=== PATIENT | female | born 1965 | race Caucasian/White ===

== ENCOUNTER 2016-07-28 07:32 | Inpatient (IN) | payer BC ==
--- NOTE | 2016-07-02 09:17 | HISTORY & PHYSICAL EXAMINATION ---
DATE OF ADMISSION: 07/28/2016 PROCEDURE: 1. Right knee arthroscopy, partial medial meniscectomy. 2. Left total knee replacement. HISTORY OF PRESENT ILLNESS: Nathanael is a pleasant 50-year-old female who presents for preoperative evaluation prior to above-mentioned procedure. She has been having pain in both of her knees for several years now, which has gradually worsened, her left knee reveals degenerative changes that have failed conservative measures including oral anti-inflammatories, cortisone injection, as well as viscosupplementation. She has tried wearing a brace as well as completed physical therapy with no relief. With regards to her right knee, she had an MRI obtained which revealed a medial meniscus tear. After discussing further care would like to proceed with a right knee arthroscopy and partial medial meniscectomy, also with a left knee replacement. PAST MEDICAL HISTORY: She denies a history of hypertension, high cholesterol, bleeding or clotting disorders. ALLERGIES: IBUPROFEN CAUSES STOMACH PAIN. ASPIRIN CAUSES STOMACH IRRITATION. CURRENT MEDICATIONS: 1. Tramadol 50 mg as needed for pain. 2. Multivitamin. 3. Cyclobenzaprine. PAST SURGICAL HISTORY: 1. Hysterectomy. 2. Lower back surgery. FAMILY HISTORY: Noncontributory. SOCIAL HISTORY: The patient is . Consumes 1-2 alcoholic beverages per week. Denies a history of smoking or tobacco use. REVIEW OF SYSTEMS: Otherwise negative. Please see HPI for pertinent positives. PHYSICAL EXAMINATION: GENERAL: Lokesh 50-year-old female in no acute distress. Alert and oriented x3. HEAD, EYES, EARS, NOSE, AND THROAT: Normocephalic, atraumatic. CARDIAC: Regular rate and rhythm. No murmurs or gallops appreciated. Resting pulse 80 beats per minute. LUNGS: Clear to auscultation without rales or wheeze bilaterally. ABDOMEN: Soft, nontender, bowel sounds present. EXTREMITIES: Right lower extremity is neurovascularly intact. Calf is soft and nontender. DP pulse +2. Range of motion is 0/1/120. She has positive modified Goyo's. With regards to her left knee there is no erythema or warmth. Has mild effusion, good quad tone, straight leg raise without lag. Overall has varus alignment. Her knee is ligamentously stable. She has positive crepitation with motion, range of motion is 0/5/115. IMAGING: Reviewed of the left knee shows findings consistent with degenerative joint disease including joint space narrowing, subchondral sclerosis, osteophyte formation noted. IMPRESSION: 1. Left knee degenerative joint disease. 2. Right knee medial meniscus tear. PLAN: Further care discussed with patient. At this point in time, has failed conservative measures and will proceed with above-mentioned procedure. We will do the right knee arthroscopy first followed by a left knee replacement. Will follow up 2 weeks postop for staple removal, sooner if she is having any problems. Otherwise, has no other questions or concerns.
[2016-07-02 13:15] VITALS: BMI 29.0
--- NOTE | 2016-07-02 13:40 | PAT Medication Instructions ---
Service Date Jul 02, 2016. Current Home Medication List Ascorbic Acid (Vitamin C), 2 TAB PO QPM Cholecalciferol (Vitamin D3), 3 TAB PO QPM Coconut Oil (Coconut Oil Organic), 4 TAB PO QPM Cyclobenzaprine Hcl (Flexeril), 5 MG PO HS Misc Natural Products (Osteo Bi-Flex Advanced Do), 2 TAB PO QPM Multivitamin (Multivitamin), 1 TAB PO HS Nutritional Supplements (Humble Oil), 4 CAP PO QPM Tramadol (Ultram), 50 MG PO Q4H PRN for Pain Vitamin E (Vitamin E), 2 TAB PO QPM Medication Instructions For Your Scheduled Surgery - Hold the following medications 2 weeks prior to surgery: Misc Natural Products (Osteo Bi-Flex Advanced Do), 2 TAB PO QPM Coconut Oil (Coconut Oil Organic), 4 TAB PO QPM Vitamin E (Vitamin E), 2 TAB PO QPM Nutritional Supplements (Humble Oil), 4 CAP PO QPM - Take the following medications the morning of surgery with a sip of water OTHERWISE NOTHING TO EAT OR DRINK AFTER MIDNIGHT: Tramadol (Ultram), 50 MG PO Q4H PRN for Pain (may take up to 4 hours prior to surgery - Take the following medications as scheduled the night before surgery: Tramadol (Ultram), 50 MG PO Q4H PRN for Pain Cyclobenzaprine Hcl (Flexeril), 5 MG PO HS Multivitamin (Multivitamin), 1 TAB PO HS Ascorbic Acid (Vitamin C), 2 TAB PO QPM Cholecalciferol (Vitamin D3), 3 TAB PO QPM If you have any questions please call us at [phone] (Crystal Trinh PA-C) or [phone] or [phone]
[2016-07-02 14:37] LABS: BASO % 0.6 %; BASO ABS # 0.04 K/uL (0-0.2); COMPLETE YES; HEMATOCRIT 38.6 % (37-47); IG% 0.2 %; LYMPH % 26.5 %; LYMPH ABS # 1.69 K/uL (1.2-3.4); MEAN CELL VOLUME 88.7 fL (80-100); MEAN CORPUSCULAR HEMOGLOBIN 30.3 pg (25-34); MEAN CORPUSCULAR HGB CONC 34.2 g/dl (32-36); MEAN PLATELET VOLUME 10.1 fL (7.4-10.4); NEUT % 56.7 %; PLATELET COUNT 341 K/uL (130-400); RED BLOOD COUNT 4.35 M/uL (4.2-5.4); WHITE BLOOD COUNT 6.38 K/uL (4.8-10.8)
--- NOTE | 2016-07-02 14:44 | DIAGNOSTIC IMAGING REPORT ---
CHEST PREADMISSION(PA/LAT) CLINICAL HISTORY: Preoperative evaluation. COMPARISON STUDY: No previous studies for comparison. FINDINGS: Lung volumes are normal. Lungs are clear. There is no pneumothorax or pleural effusion. Pulmonary vascularity is normal. Cardiac size is normal. Mediastinal contours are unremarkable. IMPRESSION: No acute cardiopulmonary findings. Electronically signed by: Bebeto Salazar M.D. 07/02/2016 2:42 PM Dictated Date/Time: 07/02/2016 2:42 PM
[2016-07-02 14:52] LABS: URINE APPEARANCE CLEAR (CLEAR); URINE BILIRUBIN NEG (NEG); URINE COLOR DK YELLOW; URINE NITRITE NEG (NEG); URINE SPECIFIC GRAVITY 1.035 (1.000-1.030); UROBILINOGEN NEG (NEG)
[2016-07-02 14:55] LABS: PARTIAL THROMBOPLASTIN RATIO 1.1; PROTHROMBIN TIME (PATIENT) 10.7 SECONDS (9.0-12.0)
[2016-07-02 15:01] LABS: MANUAL MICROSCOPIC REQUIRED? NO; REVIEW REQ? NO
[2016-07-02 15:01] LABS: CALCIUM 8.8 mg/dl (8.5-10.1); CREATININE 0.77 mg/dl (0.60-1.20); POTASSIUM 4.6 mmol/L (3.5-5.1)
[2016-07-03 06:22] LABS: ESTIMATED AVERAGE GLUCOSE 100 mg/dl; HA1C FLAG Normal (Normal)
[~2016-07-28] VITALS: Ht 167.6 cm; Wt 84.0 kg
[2016-07-28] VITALS (8 sets, daily range): BP systolic 122–161; BP diastolic 72–99; PULSE 58–102; TEMP 36.4–37; O2SAT 95–100; Ht 167.6 cm; Wt 84.0 kg
--- NOTE | 2016-07-28 07:12 | History & Physical Bridge Note ---
H&P Re-Evaluation Bridge Note: I have examined the patient, reviewed the History & Physical and in the interval since the performance of the History & Physical I have noted the following changes of clinical significance: No changes noted
[~2016-07-28 07:32] MED LIST: ACETAMINOPHEN 500 MG TAB PO SCH; ASCA500 PO; CEFAZOLIN 2000 MG/60 ML D5W 60 ML IV SCH; CHOL1CHW10 PO; COCO1CAP PO; CYCL5TAB PO; CeleBREX 200 MG CAP PO SCH; DEXAMETHASONE 4 MG TAB PO SCH; FAMOTIDINE 20 MG TAB PO SCH; GABAPENTIN 300 MG CAP PO SCH; LACTATED RINGER'S 1000ML 1,000 ML IV SCH; LACTATED RINGER'S 1000ML IV SCH; LACTATED RINGER'S 500 ML IV SCH; METOCLOPRAMIDE HCL 10 MG TAB PO SCH; MISCTAB78 PO; MULT-506 PO; NUTR1000 PO; ORTHO JOINT ANESTHETIC ONE; ROPIVACAINE 5MG/ML 30 ML 150 MG, BUPIVACAINE/EPINEPHR 0.5% MPF 30 ML, KETOROLAC TROMETH... INFIL SCH; TRAM-10 PO; VITA10004 PO
[2016-07-28] MEDS ORDERED: BACITRACIN 50000 UNIT VIAL ONE ×2 (07:33→07:34)
[2016-07-28] MEDS ORDERED: MIDAZOLAM HCL 1 MG/ML 2ML VIAL ONE ×2 (07:41→08:55)
[2016-07-28] MEDS ORDERED: ONDANSETRON INJ 2 MG/ML 2 ML VIAL ONE (07:41)
[2016-07-28] MEDS ORDERED: LIDOCAINE HCL 2% 2 ML VIAL (20MG/ML) ONE (07:41)
[2016-07-28] MEDS ORDERED: PROPOFOL IV EMULSION 10 MG/ML 20 ML VIAL IV ONE ×2 (07:41→09:45)
[2016-07-28] MEDS ORDERED: BUPIVACAINE 0.25% 30 ML VIAL ONE (07:56)
[2016-07-28] MEDS ORDERED: BUPIVACAINE 0.5 % 5 MG/1 ML PF 10ML VIAL ONE (07:57)
[2016-07-28] MEDS: TRANEXAMIC ACID INJ 1,000 MG in SODIUM CHLORIDE 0.9% 100ML 100 ML IV SCH ×2 (08:21→13:06)
[2016-07-28] MEDS ORDERED: LACTATED RINGER'S 1000ML 1,000 ML IV PRN (08:38)
[2016-07-28] MEDS ORDERED: ONDANSETRON INJ 2 MG/ML 2 ML VIAL IV PRN ×2 (08:45→10:45)
[2016-07-28] MEDS ORDERED: FENTANYL CITRATE INJ 50 MCG/1 ML 2 ML VIAL IV PRN (08:45)
[2016-07-28] MEDS ORDERED: BUPIVACAINE/EPINEPHRINE 0.5% MPF 1:200,000 30 ML VIAL ONE (08:55)
[2016-07-28] MEDS ORDERED: FENTANYL CITRATE INJ 50 MCG/1 ML 2 ML VIAL ONE (09:16)
--- NOTE | 2016-07-28 10:10 | [facility] Post Operative Brief Note ---
Immediate Operative Summary Operative Date Jul 28, 2016. Pre-Operative Diagnosis Left knee degenerative joint disease, right knee medial meniscus tear Post-Operative Diagnosis Left knee degenerative joint disease, right knee medial meniscus tear Procedure(s) Performed Left total knee arthoplasty, Right knee partial medial meniscectomy, partial lateral meniscectomy, Right knee arthroscopy Surgeon Dr. Shell Rn Hedis Surgeon(s) Sam Monet PA-C Estimated Blood Loss 10 cc Findings Rt knee tmm tlm left knee djd Specimens A: Left knee bone and tissue Complication(s) None Disposition Recovery Room / PACU
[2016-07-28] MEDS ORDERED: POVIDONE-IODINE OP SOLN 30 ML BTL TOP ONE (10:13)
[2016-07-28] MEDS ORDERED: DiphenhydrAMINE HCL 50 MG/ML VIAL IV PRN (10:45)
[2016-07-28] MEDS ORDERED: ALUMINUM/MAGNESIUM/SIMETH (MAALOX MAX) 30 ML UDC PO PRN (10:45)
[2016-07-28] MEDS ORDERED: BISACODYL 10 MG SUPP PR PRN (10:45)
[2016-07-28] MEDS ORDERED: MoRPHine SULFATE 2 MG/ML CARP IV PRN (10:45)
[2016-07-28] MEDS ORDERED: MAGNESIUM HYDROXIDE SUSP 30 ML UDC PO PRN (10:45)
--- NOTE | 2016-07-28 11:28 | DIAGNOSTIC IMAGING REPORT ---
LEFT KNEE 2 VIEWS History: Left total knee arthroplasty. Degenerative arthritis. Postop. FINDINGS: The patient is status post a left total knee arthroplasty. The hardware is intact. No fracture or dislocation. Skin paola and surgical drains are in place. IMPRESSION: Left total knee arthroplasty. No evidence for hardware complication. Electronically signed by: Jaquan Willis M.D. 07/28/2016 11:27 AM Dictated Date/Time: 07/28/2016 11:26 AM
--- NOTE | 2016-07-28 11:43 | Anesthesiology Progress Note ---
Anesthesia Post Op Note Date & Time Jul 28, 2016 at 11:42 Vital Signs Pain Intensity: 0 Vital Signs Past 12 Hours Date Time Temp Pulse Resp B/P Pulse Ox O2 Delivery O2 Flow Rate FiO2 07/28/16 11:35 36.4 58 20 138/85 100 Nasal Cannula 2.0 07/28/16 11:14 58 15 97 07/28/16 11:14 58 15 07/28/16 11:13 109/64 07/28/16 11:09 57 20 07/28/16 11:09 58 20 100 07/28/16 11:08 122/59 07/28/16 11:06 36.6 07/28/16 11:04 55 20 100 07/28/16 11:04 56 20 07/28/16 11:03 118/79 07/28/16 10:59 74 19 100 07/28/16 10:59 72 19 07/28/16 10:58 127/83 07/28/16 10:57 88 16 100 07/28/16 10:57 88 16 07/28/16 10:53 123/75 07/28/16 10:52 65 23 07/28/16 10:52 63 23 99 07/28/16 10:51 66 20 99 07/28/16 10:51 67 20 07/28/16 10:48 121/76 07/28/16 10:46 61 16 98 07/28/16 10:46 61 16 07/28/16 10:44 128/93 07/28/16 10:41 89 17 100 07/28/16 10:41 36.1 78 16 127/71 100 Nasal Cannula 2 07/28/16 10:41 91 17 07/28/16 07:52 36.6 69 18 161/99 100 Room Air Notes Mental Status: alert / awake / arousable, participated in evaluation Pt Amnestic to Procedure: No Nausea / Vomiting: adequately controlled Pain: adequately controlled Airway Patency, RR, SpO2: stable & adequate BP & HR: stable & adequate Hydration State: stable & adequate Neuraxial Anesthesia: was administered, sensory block is resolving Anesthetic Complications: no major complications apparent Pt did well. Recall as explained and expected.
--- NOTE | 2016-07-28 11:58 | OPERATIVE REPORT ---
DATE OF OPERATION: 07/28/2016 PREOPERATIVE DIAGNOSES: Right knee torn medial meniscus, torn lateral meniscus, grade 3 and 4 degenerative joint disease medial compartment, left knee severe degenerative joint disease. POSTOPERATIVE DIAGNOSES: Right knee torn medial meniscus, torn lateral meniscus, grade 4 medial compartment global degenerative joint disease, left knee severe end-stage degenerative joint disease tricompartmental. PROCEDURES: Right knee arthroscopy, arthroscopic partial medial meniscectomy, partial lateral meniscectomy, chondroplasty of medial tibial plateau and medial femoral condyle, left knee Journey II patient matched block custom fit total knee arthroplasty using size 6 femur, 5 tibia, 10 poly, 35 oval patella. SURGEON: Dr. Shell. EQUITY DIRECTOR: Sam Monet, who was necessary for prepping, draping, retraction, wound closure of defect, subQ and skin and was necessary for the case. HISTORY OF PRESENT ILLNESS: The patient presents as a very pleasant 50-year-old female, being seen and evaluated with complaints of ongoing pain attributable to her bilateral knees. She presents with the above complaints after being unsuccessful with conservative management. INDICATIONS: The patient, age 50, presents being seen and evaluated after failing attempts at conservative management including physical therapy, viscosupplementation, corticosteroid injections, relative rest and presents after failing conservative management for total knee arthroplasty. PROCEDURE FOR RIGHT KNEE: After proper prepping and draping of the right lower extremity, arthroscopic examination revealed there to be evidence of a tear of the medial meniscus, tear of the lateral meniscus and medial and lateral parapatellar portals were created. Arthroscopy revealed there to be evidence of a complex tear of the posterior horn of the medial meniscus, complex tear of the posterior horn of the lateral meniscus. Subsequently, partial posterior horn medial and lateral meniscectomies were performed. Removal of a 1 x 1 cm loose body was also performed. A chondroplasty for global grade 3 and 4 changes of the medial compartment and patellofemoral compartments was performed. All particulate matter and debris was removed. Skin portals were closed with 4-0 nylon. Sterile compression dressing was placed to the right knee. PROCEDURE FOR LEFT KNEE: The patient was properly prepped and draped in supine position for total knee arthroplasty after identifying the appropriate surgical site. An anterior midline incision was made through the subcutaneous tissues down to the region of the extensor mechanism. A medial parapatellar incision was subsequently made. Meticulous hemostasis was obtained and performed at all times. The patella having been subluxed lateralward, medial and lateral meniscal remnants were excised. The patellar cut was then initially made and was sized to the appropriate size. After subluxing the tibia forward the appropriate meniscal fragments having been removed the distal femur was then cut first utilizing a Goodrich and Nephew block. The distal femoral cuts and chamfer cuts were all made under direct visualization and the proximal tibial osteotomy cut was also made utilizing Goodrich and Nephew blocks and checked with an extramedullary guide. The appropriate trial components on the femur and tibia were placed. Appropriate trial spacers were used to check flexion and extension gaps. With flexion and extension gaps being equal, the components were then subsequently after thorough irrigation and debridement lavage components were then subsequently cemented in the following order: femur, tibia and patella. Exparel was used for intraoperative anesthesia, the medial parapatellar incision was closed utilizing #1 Vicryl, subQ was closed with 2-0 Vicryl, skin was closed with skin clips. A sterile compression dressing was placed. The patient was taken to recovery room in stable condition. Due to the complex nature of the procedure, the entire surgery was performed with the operational assistance of Sam Monet PA-C. The patient care assistant, under direct supervision, was involved in the actual performance of all aspects of the surgical procedure including hemostasis, tissue retraction and incision, instrument management, patient positioning, and wound closure. ESTIMATED BLOOD LOSS: Total of 10 mL. TOURNIQUET TIME: Right knee 15 minutes and left knee 45 minutes. No complications. I attest to the content of the Intraoperative Record and any orders documented therein. Any exceptions are noted below. ARMANDO
[2016-07-28] MEDS ORDERED: MoRPHine SULFATE 10 MG/ML CARP/VIAL IV PRN (12:15)
[2016-07-28] MEDS: D5W AND 1/2NSS + 20MEQ KCL 1,000 ML IV SCH ×2 (13:07→22:32)
[2016-07-28] MEDS: FERROUS GLUCONATE 324 MG TAB PO SCH ×2 (13:08→17:52)
[2016-07-28] MEDS: KETOROLAC TROMETHAMINE 30 MG/ML VIAL IV. SCH ×2 (14:14→20:40)
[2016-07-28] MEDS: OXYCODONE HCL IR 5 MG TAB (IMMEDIATE RELEASE) PO PRN ×2 (15:07→17:00)
[2016-07-28] MEDS: ACETAMINOPHEN 500 MG TAB PO SCH (15:36)
[2016-07-28] MEDS: CEFAZOLIN IV 2,000 MG in DEXTROSE 5% 50ML 50 ML IV SCH (15:36)
[2016-07-28] MEDS: OXYCODONE HCL 10 MG TABCR (OXYCONTIN) PO SCH (20:40)
[2016-07-28] MEDS: DOCUSATE SODIUM 100 MG CAP PO SCH (20:40)
[2016-07-28] MEDS: SENNA 8.6 MG TAB PO SCH (20:41)
[2016-07-28] MEDS: CYCLOBENZAPRINE HCL 5 MG TAB PO SCH (20:41)
[2016-07-28] MEDS: CHOLECALCIFEROL 1000 INTER.UNIT TAB PO SCH (20:42)
[2016-07-29] MEDS: CEFAZOLIN IV 2,000 MG in DEXTROSE 5% 50ML 50 ML IV SCH (00:09)
[2016-07-29] MEDS: ACETAMINOPHEN 500 MG TAB PO SCH ×4 (00:10→23:47)
[2016-07-29] MEDS: KETOROLAC TROMETHAMINE 30 MG/ML VIAL IV. SCH ×2 (02:16→07:40)
[2016-07-29 03:26] VITALS: BP 109/67; PULSE 73; TEMP 36.7; O2SAT 99
[2016-07-29 07:10] VITALS: BP 127/80; PULSE 59; TEMP 36.6; O2SAT 99
[2016-07-29 07:33] LABS: HEMATOCRIT 27.3 % (37-47); MEAN CELL VOLUME 87.2 fL (80-100); MEAN CORPUSCULAR HEMOGLOBIN 29.7 pg (25-34); MEAN CORPUSCULAR HGB CONC 34.1 g/dl (32-36); MEAN PLATELET VOLUME 9.7 fL (7.4-10.4); PLATELET COUNT 269 K/uL (130-400); RED BLOOD COUNT 3.13 M/uL (4.2-5.4); WHITE BLOOD COUNT 14.53 K/uL (4.8-10.8)
--- NOTE | 2016-07-29 07:35 | Orthopedic Progress Note ---
Orthopedic Progress Note Date of Service Jul 29, 2016. Subjective Post OP Day: 1 Reports: feeling well, pain controlled w PO medications, Denies: SOB, calf pain , chest pain, complaints, light headedness, nausea / vomiting Objective calves soft nontender, N/V intact, capillary refill less than 2 sec., dressing C /D/I, A&O x3, toes mobile, hemovac drainage (100cc/ 8 hours) Date Time Temp Pulse Resp B/P Pulse Ox O2 Delivery O2 Flow Rate FiO2 07/29/16 07:10 36.6 59 16 127/80 99 Room Air 07/29/16 03:26 36.7 73 16 109/67 99 Room Air 07/29/16 00:10 Room Air 07/28/16 23:22 36.6 77 18 122/72 97 Room Air 07/28/16 19:06 37.0 102 19 150/78 95 Room Air 07/28/16 15:30 Room Air 07/28/16 14:35 36.6 77 18 147/91 97 Room Air 07/28/16 13:34 36.5 77 18 143/83 98 2.0 07/28/16 12:36 71 18 145/97 98 2.0 07/28/16 12:06 86 18 138/86 100 2.0 07/28/16 11:35 Nasal Cannula 2.0 07/28/16 11:35 36.4 58 20 138/85 100 Nasal Cannula 2.0 07/28/16 11:35 100 Nasal Cannula 2.0 07/28/16 11:14 58 15 97 07/28/16 11:14 58 15 07/28/16 11:13 109/64 07/28/16 11:09 57 20 07/28/16 11:09 58 20 100 07/28/16 11:08 122/59 07/28/16 11:06 36.6 07/28/16 11:04 55 20 100 07/28/16 11:04 56 20 07/28/16 11:03 118/79 07/28/16 10:59 74 19 100 07/28/16 10:59 72 19 07/28/16 10:58 127/83 07/28/16 10:57 88 16 100 07/28/16 10:57 88 16 07/28/16 10:53 123/75 07/28/16 10:52 65 23 07/28/16 10:52 63 23 99 07/28/16 10:51 66 20 99 07/28/16 10:51 67 20 07/28/16 10:48 121/76 07/28/16 10:46 61 16 98 07/28/16 10:46 61 16 07/28/16 10:44 128/93 07/28/16 10:41 89 17 100 07/28/16 10:41 36.1 78 16 127/71 100 Nasal Cannula 2 07/28/16 10:41 91 17 07/28/16 07:52 36.6 69 18 161/99 100 Room Air Laboratory Results 24 Hours: Test 07/29/16 07:23 Assessment & Plan Assessment: POD #1 s/p Right knee scope, PMM/PLM, Left TKA -dvt proph with barbara/scd/asa -PT/OT -plan for d/c home with OPPT @ [facility] Discharge Planning Discharge Planning: home with oppt DVT Prophylaxis: TEDs, SCDs, ASA Therapy: Physical Therapy
[2016-07-29] MEDS: ENOXAPARIN 40 MG/0.4 ML SYR SQ SCH (07:50)
[2016-07-29 08:35] LABS: BUN/CREATININE RATIO 18.4 (10-20); CALCIUM 8.3 mg/dl (8.5-10.1); CREATININE 0.85 mg/dl (0.60-1.20); POTASSIUM 4.6 mmol/L (3.5-5.1)
[2016-07-29] MEDS: D5W AND 1/2NSS + 20MEQ KCL 1,000 ML IV SCH (08:44)
[2016-07-29] MEDS: DOCUSATE SODIUM 100 MG CAP PO SCH ×2 (08:46→20:56)
[2016-07-29] MEDS: FERROUS GLUCONATE 324 MG TAB PO SCH ×3 (08:46→17:44)
[2016-07-29] MEDS: PANTOprazole SOD 40 MG TAB PO SCH (08:47)
[2016-07-29] MEDS: OXYCODONE HCL 10 MG TABCR (OXYCONTIN) PO SCH ×2 (08:47→20:56)
[2016-07-29] MEDS: MULTIVITAMIN TAB PO SCH (08:47)
[2016-07-29 10:49] VITALS: BP 137/83; PULSE 69; TEMP 36.6; O2SAT 100
[2016-07-29] MEDS: OXYCODONE HCL IR 5 MG TAB (IMMEDIATE RELEASE) PO PRN ×4 (10:58→23:48)
--- NOTE | 2016-07-29 11:01 | Clinical Documentation Query ---
Dr. ANTOINE, ARNAUD : CLINICAL DOCUMENTATION QUERY Patient is a 50 year old female who underwent elective L TKA, right knee partial medial meniscectomy, partial lateral meniscectomy, Right knee arthroscopy. EBL for the procedure was only 10 ml's with subsequently documented losses to date totaling an additional 375 ml's. Additionally, I/O is positive for approximately 1,700 ml's to date. She is being monitored with I/O and serial hematology. In your clinical opinion is this patient being managed for: ( ) Acute blood loss and hemodilutional anemia ( ) Other explanation of clinical findings (Please Explain) (X ) Unable to determine (Please Define) ( ) Need to Discuss ( ) Not Agree The medical record reflects the following clinical findings, treatment, and risk factors. Clinical Indicators: As above Treatment:She is being monitored with I/O and serial hematology. Risk Factors: Perioperative blood loss and IVF administration. Please clarify and document your clinical opinion in the progress notes and discharge summary. Terms such as "probable", "suspected", "likely", "questionable", "possible", or "still to be ruled out" are acceptable. IF IN AGREEMENT, YOU MUST DOCUMENT ABOVE DIAGNOSTIC STATEMENT IN DAILY PROGRESS NOTES AND DISCHARGE SUMMARY. This document is not part of the patient's record. Thank You, Tim Camejo RN [phone]
--- NOTE | 2016-07-29 13:20 | Discharge Instructions ---
Discharge Instructions Admission Reason for Admission: Left Knee Djd, Right Knee Medial Meniscal Tear Discharge Discharge Diagnosis / Problem: left TKA, right knee arthroscopy PMM, PLM Discharge Goals Goal(s): Decrease discomfort, Improve function, Increase independence Activity Recommendations Activity Limitations: as noted below Weightbearing Status: Left weightbearing (as tolerated), Right weightbearing ( as tolerated) . Instructions / Follow-Up Instructions / Follow-Up ACTIVITY RECOMMENDATIONS: SELF CARE INSTRUCTIONS AFTER TOTAL KNEE REPLACEMENT A. You may need to continue a physical therapy program after discharge from the hospital. There are several options available to you. Your doctor will assist you in selecting the best one for you. 1. An out-patient facility 2 to 3 times a week for therapy or home therapy. 2. Continue working on all exercises taught to you in the hospital. Your goals should be to increase bending of your knee to 90 degrees and beyond and to fully straighten your knee. B. You may progress at your own pace from walking with a walker or crutches to a cane; then to no assistive devices. C. Make walking a part of your daily routine. Be up as much as comfortable with rest periods throughout the day. Rest with leg elevation is very important. Use the ice wrap frequently for the first 3-4 weeks. D. There are no restrictions on activities. 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 E. Wear the long elastic stockings (PERLA hose) 20 hours a day for 2 weeks after surgery. They can be removed several times a day for laundering and for a bath. F. You may shower, no tub baths until cleared by your doctor. SPECIAL CARE INSTRUCTIONS: VERY IMPORTANT TO READ AND REVIEW A. There are a few signs you need to watch for after you are home. Call [facility] if you notice any of the followin. Increased severe knee pain. Some pain is expected especially when you exercise. 2. Increased swelling in your leg or knee; pain or swelling of the calf muscle in either lower leg. 3. Any fluid drainage from the incision. 4. Shortness of breath or chest pain. B. Please call [facility] at if you have any concerns or questions about your operation or recovery. The doctor or his nurse will return your call promptly. C. You must take antibiotics before dental work, bladder, bowel or other surgery. Your doctor will provide you with a permanent care to carry describing this precaution. IMPORTANT: * REMEMBER TO TAKE ASPIRIN, 81 MG, TWICE DAILY FOR 4 WEEKS UNLESS OTHERWISE DIRECTED. THIS IS YOUR BLOOD THINNER. * HIGH RISK PATIENTS MAY BE PRESCRIBED A STRONGER BLOOD THINNER. THIS WILL BE PROVIDED AT DISCHARGE. * CALL IF INCREASED PAIN, REDNESS, DRAINAGE OR FEVER GREATER THAT 101. * WEAR PERLA HOSE 20 HOURS PER DAY FOR 2 WEEKS. * YOU MAY HAVE A LARGE BAND-AID LIKE DRESSING (SILVERON). THIS WILL REMAIN ON YOUR INCISION FOR 7 DAYS, THEN CAN BE REMOVED. IF INCISION IS LEAKING THROUGH DRESSING, CALL THE OFFICE . FOLLOW UP VISIT: If appointment is not already scheduled: Please call [facility] to make a follow-up appointment for 2 weeks after your surgery at . Current Hospital Diet Patient's current hospital diet: Regular Diet Discharge Diet Recommended Diet: Regular Diet Procedures Procedures Performed: Left total knee arthoplasty, Right knee partial medial meniscectomy, partial lateral meniscectomy, Right knee arthroscopy Pending Studies Studies pending at discharge: no Laboratory Results Hemoglobin A1c Test 07/02/16 13:51 Range/Units Estimated Average Glucose 100 mg/dl Hemoglobin A1c 5.1 4.5-5.6 % Medical Emergencies . Who to Call and When: Medical Emergencies: If at any time you feel your situation is an emergency, please call 911 immediately. . Non-Emergent Contact Non-Emergency issues call your: Primary Care Provider, Surgeon . "Provider Documentation" section prepared by Jewel Escobar. VTE Core Measure Inpt VTE Proph given/why not?: Other Anticoagulation (ASA 81mg po bid x 1 month ), T.E.Louisa Blanco, SCD's [place] Drug Monitoring Program Search Results: patient reviewed within database, no issues identified
--- NOTE | 2016-07-29 13:45 | Anesthesiology Progress Note ---
Anesthesia Post Op Note Date & Time Jul 29, 2016 at 13:45 Vital Signs Vital Signs Past 12 Hours Date Time Temp Pulse Resp B/P Pulse Ox O2 Delivery O2 Flow Rate FiO2 07/29/16 10:49 36.6 69 16 137/83 100 Room Air 07/29/16 07:30 Room Air 07/29/16 07:10 36.6 59 16 127/80 99 Room Air 07/29/16 03:26 36.7 73 16 109/67 99 Room Air Notes Mental Status: alert / awake / arousable, participated in evaluation Pt Amnestic to Procedure: Yes Nausea / Vomiting: adequately controlled Pain: adequately controlled Airway Patency, RR, SpO2: stable & adequate BP & HR: stable & adequate Hydration State: stable & adequate Neuraxial Anesthesia: was administered, sensory block resolved Anesthetic Complications: no major complications apparent
[2016-07-29 15:03] VITALS: BP 125/74; PULSE 85; TEMP 36.7; O2SAT 99
[2016-07-29] MEDS: SENNA 8.6 MG TAB PO SCH (20:56)
[2016-07-29] MEDS: CHOLECALCIFEROL 1000 INTER.UNIT TAB PO SCH (20:57)
[2016-07-29] MEDS: CYCLOBENZAPRINE HCL 5 MG TAB PO SCH (20:57)
[2016-07-29] MEDS: MoRPHine SULFATE 4 MG/ML 1 ML CARP\\VIAL IV PRN (22:14)
[2016-07-29 23:01] VITALS: BP 157/87; PULSE 81; TEMP 36.8; O2SAT 97
[2016-07-30] MEDS: MoRPHine SULFATE 4 MG/ML 1 ML CARP\\VIAL IV PRN (03:10)
[2016-07-30] MEDS: OXYCODONE HCL IR 5 MG TAB (IMMEDIATE RELEASE) PO PRN ×2 (05:28→10:05)
[2016-07-30 06:08] VITALS: BP 160/99; PULSE 74; TEMP 36.7; O2SAT 100
[2016-07-30 07:22] VITALS: BP 159/93
[2016-07-30] MEDS: OXYCODONE HCL 10 MG TABCR (OXYCONTIN) PO SCH (07:28)
[2016-07-30] MEDS: FERROUS GLUCONATE 324 MG TAB PO SCH (07:29)
[2016-07-30] MEDS: DOCUSATE SODIUM 100 MG CAP PO SCH (07:30)
[2016-07-30] MEDS: MULTIVITAMIN TAB PO SCH (07:30)
[2016-07-30] MEDS: ACETAMINOPHEN 500 MG TAB PO SCH (07:30)
[2016-07-30] MEDS: PANTOprazole SOD 40 MG TAB PO SCH (07:31)
[2016-07-30] MEDS: ENOXAPARIN 40 MG/0.4 ML SYR SQ SCH (07:33)
--- NOTE | 2016-07-30 07:41 | Orthopedic Progress Note ---
Orthopedic Progress Note Date of Service Jul 30, 2016. Subjective Post OP Day: 2 Reports: feeling well, pain controlled w PO medications, Denies: SOB, calf pain , chest pain, complaints, light headedness, nausea / vomiting Objective calves soft nontender, N/V intact, capillary refill less than 2 sec., dressing C /D/I (silverlon left knee intact), incision C/D/I (portals right knee ), A&O x3 , toes mobile Date Time Temp Pulse Resp B/P Pulse Ox O2 Delivery O2 Flow Rate FiO2 07/30/16 07:22 159/93 07/30/16 06:08 36.7 74 16 160/99 100 Room Air 07/29/16 23:30 Room Air 07/29/16 23:01 36.8 81 16 157/87 97 Room Air 07/29/16 15:30 Room Air 07/29/16 15:03 36.7 85 18 125/74 99 Room Air 07/29/16 10:49 36.6 69 16 137/83 100 Room Air Assessment & Plan Assessment: POD #2 s/p Right knee scope, PMM/PLM, Left TKA -dvt proph with barbara/scd/asa -PT/OT -plan for d/c home with OPPT @ [facility], plan for d/c later today if her BP improves Discharge Planning Discharge Planning: home with oppt DVT Prophylaxis: TEDs, SCDs, ASA Therapy: Physical Therapy
[2016-07-30] MEDS ORDERED: CLC100 PO (07:46)
[2016-07-30] MEDS ORDERED: LVNIS40 SQ (07:46)
[2016-07-30] MEDS ORDERED: ACET-1138 PO (07:46)
[2016-07-30] MEDS ORDERED: ONDA8TAB6 PO (07:46)
[2016-07-30] MEDS ORDERED: OXYSR10 PO (07:46)
[2016-07-30] MEDS ORDERED: RXC5 PO (07:46)
[2016-07-30 08:19] VITALS: BP 141/90; PULSE 99; TEMP 36.9; O2SAT 97
[2016-07-30 08:28] VITALS: BP 138/92
[2016-07-30 09:12] VITALS: O2SAT 97
[2016-07-30 10:06] VITALS: BP 138/92; PULSE 99; TEMP 36.9; O2SAT 97
--- NOTE | 2016-08-04 14:13 | DISCHARGE SUMMARY ---
DISCHARGE DIAGNOSIS: Degenerative joint disease left knee, right medial meniscal tear and lateral meniscal tear. CONSULTS: None. COMPLICATIONS: None. PROCEDURES: Left total knee arthroplasty and right knee arthroscopy with medial and lateral meniscectomies partial on 07/28/[address] Shell. BRIEF HISTORY: As dictated in the history and physical. HOSPITAL SUMMARY: The patient was admitted on the above-noted date and had the above-noted surgery performed which she tolerated well. On the first postoperative day, the patient was remaining stable and feeling well. She had no pain and had no complaints. Calves were soft, nontender, neurovascularly intact. Cap refill is less than 2 seconds. Dressings clean, dry and intact. Toes were mobile and vital signs were stable. She was afebrile. She was started on physical therapy protocol and continued on DVT prophylaxis and pain management. By her second postoperative day, the patient was feeling well and pain was controlled. Calves were soft and nontender. Neurovascularly intact. Silverlon dressing was intact. Incisions over the portals of the right knee were benign and toes were mobile. The patient was progressing with physical therapy and remaining stable and it was felt she could be discharged to home with outpatient PT. For further review, please see chart. LAB AND X-RAY DATA: As per chart. DISCHARGE INSTRUCTIONS: The patient was discharged to home in satisfactory condition on 07/30/2016. DIET: Regular. ACTIVITY: Weightbearing as tolerated left and right lower extremities. Follow TKA instruction sheets and special care instructions as well as arthroscopy instructions. Follow up with Dr. Shell in 2 weeks. The patient to call for appointment if one has not been made for you. DISCHARGE MEDICATIONS: Acetaminophen 1000 mg p.o. q. 8 hours, Colace 100 mg p.o. b.i.d., enoxaparin 40 mg subQ 24 hours for 12 days, Zofran 8 mg p.o. q. 8 hours p.r.n., OxyContin 10 mg p.o. q. 12 hours, oxycodone 5-10 mg p.o. q. 4 hours p.r.n., resume vitamin C 500 mg 2 tabs p.o. q.p.m., vitamin D3 3tabs p.o. q.p.m., coconut oil 4 tabs p.o. q.p.m., cyclobenzaprine 5 mg p.o. at bedtime, Osteo Bi-Flex two tabs p.o. q.p.m., multivitamin 1 tab p.o. at bedtime, nutritional supplements 4 caps p.o. q.p.m., vitamin E 1000 units 2 tabs p.o. q.p.m. Stop taking tramadol.
== END 2016-07-30 10:49 | disposition home or self-care (01) | DRG 470 ==
LOC: ENRESERVTM → ENRESERVDT → C.ACU 07:32 → C.3E 10:45
PROVIDERS: ADMIT Orthopaedic Surgery; ATTEND Orthopaedic Surgery
PROC: 0SQC4ZZ Repair Right Knee Joint, Percutaneous Endoscopic Approach (ICD-10-PCS; principal; 2016-07-28 09:30)
PROC: 0SBC4ZZ Excision of Right Knee Joint, Percutaneous Endoscopic Approach (ICD-10-PCS; principal; 2016-07-28 09:30)
PROC: 0SRD0J9 Replacement of Left Knee Joint with Synthetic Substitute, Cemented, Open Approach (ICD-10-PCS; principal; 2016-07-28 09:30)
DX: M17.12 Unilateral primary osteoarthritis, left knee (principal); S83.241A Other tear of medial meniscus, current injury, right knee, initial encounter; S83.281A Other tear of lateral meniscus, current injury, right knee, initial encounter; X58.XXXA Exposure to other specified factors, initial encounter; Z88.6 Allergy status to analgesic agent